=== PATIENT | female | born 1975 | race Caucasian/White ===

== ENCOUNTER 2019-10-20 11:08 | Outpatient (CLI) | payer OTHER, SELFPAY ==
--- NOTE | ~2019-10-20 | XR_ITS ---
EXAMINATION: XR lumbar spine 2-3V DATE: 10/20/2019 11:29 INDICATION: Back and left lower limb pain. TECHNIQUE: Anteroposterior and lateral views of the lumbar spine, and cone-down lateral view of the l umbosacral junction were obtained. COMPARISON: None. FINDINGS: Minimal lumbar levocurvature. Sagittal alignment is normal. Vertebral body heights are normal. Disc h eights are normal with anterior endplate osteophytes at multiple levels in the lower thoracic and upp er lumbar spine. Mild upper to moderate lower lumbar sac osteoarthritis. Decrement bilateral sacroili ac joints are normal. Bilateral hip joint spaces are normal. IMPRESSION: 1. Mild upper to moderate lower lumbar facet osteoarthritis. Reviewed, dictated and finalized at location A.
--- NOTE | ~2019-10-20 | US_ITS ---
EXAMINATION: US venous doppler [facility] DATE: 10/20/2019 11:53 INDICATION: Lower limb pain. TECHNIQUE: Grayscale ultrasound images without and with compression and Doppler ultrasound images of the bilateral lower extremity veins were obtained. COMPARISON: None. FINDINGS: The visualized portions of right common femoral vein, profunda (deep) femoral vein, femoral vein, pop liteal vein, peroneal veins, posterior tibial veins, and greater saphenous vein outflow are patent. The visualized portions of left common femoral vein, profunda femoral vein, femoral vein, popliteal v ein, peroneal veins, posterior tibial veins, and greater saphenous vein outflow are patent. IMPRESSION: 1. No deep venous thrombosis. Reviewed, dictated and finalized at location B.
== END 2019-10-20 11:09 | disposition home or self-care (01) ==
LOC: ANHIMG 11:13
PROVIDERS: PCP Family Medicine; Visit Provider Nurse Practitioner Family
DX: M79.669 Pain in unspecified lower leg (principal); M51.36 Other intervertebral disc degeneration, lumbar region
CPT/HCPCS: 72100; 93970

== ENCOUNTER 2020-03-05 10:06 | Outpatient (CLI) | payer OTHER, SELFPAY ==
--- NOTE | ~2020-03-05 | US_ITS ---
US abdomen complete EXAMINATION: US Abdomen Complete INDICATION: Generalized abdominal pain. PROCEDURE: Realtime High Resolution abdomen ultrasound. COMPARISON: No prior studies for comparison FINDINGS: Gallbladder within normal limits. No gallstones, pericholecystic fluid, gallbladder wall t hickening or biliary dilatation. Common bile duct measures 3 mm. Liver echotexture within normal limits without focal mass. Pancreas within normal limits. Pancreati c tail is obscured by bowel gas. Spleen is unremarkeable. Renal echotexture is within normal limits bilaterally without hydronephrosis, contour deforming mass or renal stone. Right kidney measures 9.8 cm. Left kidney measures 9.4 cm. No definite hernia is identified in the area of palpable concern. Va lsalva maneuver was performed. Visualized aspects of the aorta and IVC are within normal limits. Portal vein is patent. No sonograph ic Bhandari's sign indicated by the technologist. IMPRESSION: 1: Normal abdominal ultrasound. No abdominal hernias identified. Reviewed, dictated and finalized at location A. 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
== END 2020-03-05 10:07 ==
PROVIDERS: PCP Nurse Practitioner Family; Visit Provider Nurse Practitioner Family
DX: R10.9 Unspecified abdominal pain (principal)
CPT/HCPCS: 76700

== ENCOUNTER 2020-07-04 09:35 | Outpatient (CLI) | payer OTHER, SELFPAY ==
--- NOTE | ~2020-07-04 | XR_ITS ---
EXAMINATION: XR chest 2V DATE: 07/04/2020 10:08 INDICATION: Acute upper respiratory tract infection TECHNIQUE: PA and lateral views of the chest were obtained. COMPARISON: None FINDINGS: The lungs are clear with no focal airspace opacities, pulmonary edema, pleural effusion or pneumothor ax. The cardiomediastinal silhouette is normal. Moderate lower thoracic spondylosis with mild anterio r wedging of multiple lower thoracic vertebral bodies. IMPRESSION: 1. No acute cardiopulmonary disease. Reviewed, dictated and finalized at location A.
== END 2020-07-04 09:36 ==
LOC: MICIMG 09:37
PROVIDERS: Visit Provider Nurse Practitioner Family
DX: J06.9 Acute upper respiratory infection, unspecified (principal)
CPT/HCPCS: 71046

== ENCOUNTER 2020-11-16 14:31 | Outpatient (CLI) | payer OTHER, SELFPAY ==
--- NOTE | 2020-11-23 12:35 | P.PCNHOL_ITS ---
Holter/Event Monitor Holter/Event Monitor Date of procedure: 11/16/20 Holter/Event Procedure: 48 Hr Holter Monitor Indications: Palpitations Conclusion: 1. 48 hour holter monitor on 11/16/20. 2. Underlying rhythm is sinus rhythm. HR range 60-133 bpm; average HR 86 bpm. 3. There are 2 premature supraventricular complexes. No supraventricular tachycardia. 4. There are 236 premature ventricular complexes. No ventricular tachycardia. 5. No sinoatrial or atrioventricular blocks. No significant pauses greater than 2 seconds. 6. Patient reports symptoms of pounding heart beats, pinching feeling, left hand tingling, rapid beats, heavy chest which demonstrate sinus rhythm, HR range 76- 104 bpm and a PVC.
== END 2020-11-16 14:32 | disposition home or self-care (01) ==
LOC: ANHCARD 14:34
PROVIDERS: Visit Provider Nurse Practitioner Family
DX: R00.2 Palpitations (principal)
CPT/HCPCS: 93225; 93226

== ENCOUNTER → 2020-12-12 11:15 | Outpatient (CLI) | payer OTHER, SELFPAY ==
--- NOTE | ~2020-12-12 | MM_ITS ---
EXAMINATION: MM screening nicky BI w nishant HISTORY: Screening mammogram TECHNIQUE: Craniocaudal and mediolateral oblique 3-D tomosynthesis images were obtained and synthetic 2-D images were generated. CAD analysis was submitted and interpreted. COMPARISON: 07/23/2017, 07/07/2014 bilateral digital screening mammogram examinations BREAST PARENCHYMAL COMPOSITION: There are scattered areas of fibroglandular density. FINDINGS: There is no evidence of suspicious mass, calcification, or architectural distortion to sugg est malignancy in either breast. There has been no suspicious interval change. IMPRESSION: 1. No mammographic evidence of malignancy. 2. Recommend routine screening mammography in one year. BI-RADS Category 1: Negative Reviewed, dictated and finalized at location A.
== END ==
PROVIDERS: PCP Family Medicine; Visit Provider Nurse Practitioner Family
DX: Z12.31 Encounter for screening mammogram for malignant neoplasm of breast (principal)
CPT/HCPCS: 77063; 77067

== ENCOUNTER 2021-03-16 10:04 | Outpatient (CLI) | payer OTHER, SELFPAY ==
--- NOTE | ~2021-03-16 | XR_ITS ---
XR foot RT min 3V DATE: 03/16/2021 10:32 INDICATION: Right foot injury TECHNIQUE: 4 views COMPARISON: None FINDINGS: There is slight plantar calcaneal enthesopathy. No fracture, dislocation, periosteal reaction or bone destruction is detected. IMPRESSION: No fracture or dislocation Reviewed, dictated and finalized at location A. S BOBBIN WINDER IMPRESSION: No fracture or dislocation
== END 2021-03-16 10:05 ==
LOC: MICIMG 10:05
PROVIDERS: Visit Provider Nurse Practitioner Family
DX: S99.921A Unspecified injury of right foot, initial encounter (principal); X58.XXXA Exposure to other specified factors, initial encounter
CPT/HCPCS: 73630

== ENCOUNTER → 2021-03-20 02:00 | Outpatient (CLI) | payer OTHER, SELFPAY ==
[2021-03-20 19:02] LABS: SARS-CoV-2 RNA PCR Negative
== END ==
PROVIDERS: PCP Family Medicine; Visit Provider Nurse Practitioner Family
DX: R68.89 Other general symptoms and signs (principal); Z20.822 Contact with and (suspected) exposure to COVID-19
CPT/HCPCS: C9803; U0003; U0005

== ENCOUNTER 2021-05-04 06:52 | Outpatient (CLI) | payer OTHER, SELFPAY ==
--- NOTE | ~2021-05-04 | MR_ITS ---
EXAMINATION: MR ankle RT wo con DATE: 05/04/2021 07:45 INDICATION: Inversion injury of right ankle with sprain. TECHNIQUE: Magnetic resonance imaging (MRI) of the right ankle was performed without intravenous cont rast. Sequences included sagittal PD-weighted FS FSE, sagittal PD-weighted FSE, coronal PD-weighted F S FSE, coronal PD-weighted FSE, axial PD-weighted FS FSE, and axial PD-weighted FSE. COMPARISON: Right foot radiographs 03/06/2021 FINDINGS: Medial ankle ligaments: The superficial component of the deltoid ligament is normal. The deep component of deltoid ligament d emonstrates indistinct fibers and increased T2-weighted signal intensity, consistent with sprain. The re is edema-like marrow signal intensity in talus at the attachment of the deep component of deltoid ligament, consistent with stress reaction. Lateral ankle ligaments: Anterior talofibular ligament and calcaneofibular ligament are thickened and indistinct with increase d signal intensity and surrounding edema. A skin marker overlies this area. Posterior talofibular lig ament is intact. Anterior and posterior tibiofibular ligaments are intact. Tendons: There is mild peroneus longus tendinopathy. Peroneus brevis tendon is normal. There is mild common pe roneal tenosynovitis. The anterior and medial ankle tendons are normal. Achilles tendon is normal. Plantar fascia: Normal. Bones/other: Bone alignment is normal. The talar dome is normal. There is a nondisplaced trabecular fracture in di stal cuboid best seen on sagittal images. Fluid: There are ankle and subtalar joint effusions. IMPRESSION: 1. Grade 2 sprain involving anterior talofibular ligament and calcaneofibular ligament. 2. Grade 2 sprain involving deep component of deltoid ligament. Stress reaction in talus at the ligam ent attachment. 3. Nondisplaced trabecular fracture in distal cuboid. 4. Mild peroneus longus tendinopathy. Mild common peroneal tenosynovitis. 5. Ankle and subtalar joint effusions. Reviewed, dictated and finalized at location A. NG ASSISTANT IMPRESSION: 1. Grade 2 sprain involving anterior talofibular ligament and calcaneofibular l igament. 2. Grade 2 sprain involving deep component of deltoid ligament. Stress reaction in talus at the ligament attachment. 3. Nondisplaced trabecular fracture in distal cuboid. 4. Mild peroneus longus tendinopathy. Mild common peroneal tenosynovitis. 5. Ankle and subtalar joint effusions.
== END 2021-05-04 06:53 ==
LOC: MICIMG 06:53
PROVIDERS: PCP Physician Assistant Medical; Visit Provider Podiatrist Foot & Ankle Surgery
DX: S93.411A Sprain of calcaneofibular ligament of right ankle, initial encounter (principal); X58.XXXA Exposure to other specified factors, initial encounter; M25.471 Effusion, right ankle
CPT/HCPCS: 73721

== ENCOUNTER 2021-05-16 07:52 | Outpatient (CLI) | payer OTHER, SELFPAY ==
--- NOTE | 2021-05-16 08:04 | ECHO_ITS ---
Patient Info Name: Kylah Vieyra Age: 45 years : 1975 Gender: Female Ht: 69 in Wt: 265 lbs BSA: 2.47 m2 HR: 71 bpm BP: 132 / 88 mmHg Heart Rhythm: Sinus Rhythm Technical Quality: Good Exam Date: 05/16/2021 8:17 AM Exam Location: [facility] Patient Status: Outpatient Admit Date: 05/16/2021 Staff Ordering Physician: Tammy Dumont Manager Operating: Brittani Martin RDCS Attending Provider: Tammy Dumont Referring Physician: Julia URIBE; Exam Type: CA echo doppler color flow Study Info Indications R01.1 - Cardiac murmur, unspecified Complete two-dimensional, color flow and Doppler transthoracic echocardiogram is performed. Strain analysis performed. Summary 1. Complete two-dimensional, color flow and Doppler transthoracic echocardiogram is performed. 2. Strain analysis performed. 3. Left ventricular chamber dimension is normal. 4. Left ventricular systolic function is normal, estimated at 55-60%. 5. There is no increased left ventricular wall thickness. 6. The left ventricular diastolic function is normal. 7. Global longitudinal strain is normal at -18 %. 8. Left atrial chamber dimension is mildly enlarged. 9. The aortic valve is probable trileaflet. 10. There is mild aortic valve regurgitation. 11. There is mild mitral valve regurgitation. 12. There is mild tricuspid valve regurgitation. 13. Frequent PVCs. Left Ventricle Left ventricular chamber dimension is normal. Left ventricular systolic function is normal, estimated at 55-60%. There is no increased left ventricular wall thickness. The left ventricular diastolic function is normal. Global longitudinal strain is normal at -18 %. Right Ventricle Right ventricular chamber dimension is normal. Right ventricular systolic function is normal. Left Atria Left atrial chamber dimension is mildly enlarged. Right Atria Right atrial chamber dimension is normal. Atrial Septum Intact interatrial septum visualized by color flow imaging. Aortic Valve The aortic valve is probable trileaflet. There is mild aortic valve sclerosis. There is no aortic valve stenosis. There is mild aortic valve regurgitation. Pulmonic Valve The pulmonic valve is normal. There is no pulmonic valve stenosis. There is trace pulmonic regurgitation. Mitral Valve The mitral valve has normal leaflets. There is no mitral valve stenosis. There is mild mitral valve regurgitation. Tricuspid Valve The tricuspid valve leaflets are normal. There is no significant tricuspid valve stenosis. There is mild tricuspid valve regurgitation. No pulmonary hypertension, estimated pulmonary arterial systolic pressure is 31 mmHg. Other Findings Frequent PVCs. Pericardium/Pleural The pericardium appears normal. There is trivial pericardial effusion. Inferior Vena Cava Normal inferior vena cava with <50% collapse upon inspiration consistent with elevated right atrial pressure, 10 mmHg. Aorta The aortic root size at the sinus of Valsalva is normal. The prox ascending aorta size is normal. Left Ventricular Outflow Tract Name Value Normal LVOT 2D LVOT Diameter 2.0 cm LVOT Doppler --------
== END 2021-05-16 07:53 | disposition home or self-care (01) ==
LOC: ANHCARD 07:54
PROVIDERS: PCP Physician Assistant Medical; Visit Provider Physician Assistant Medical
DX: R01.1 Cardiac murmur, unspecified (principal); R42 Dizziness and giddiness; I08.3 Combined rheumatic disorders of mitral, aortic and tricuspid valves
CPT/HCPCS: 93306

== ENCOUNTER 2022-04-04 16:30 | Outpatient (CLI) | payer BC, SELFPAY ==
--- NOTE | ~2022-04-04 | XR_ITS ---
AP view of the pelvis and AP and lateral views of the left hip Clinical history: Pain Findings: No acute fracture or dislocation is seen. Osseous alignment is anatomic. Bilateral hip and SI joint spaces are preserved. Soft tissues are unremarkable. Impression: No significant abnormality is seen. Reviewed, dictated and finalized at [facility]. TECHNICIAN Impression: No significant abnormality is seen.
== END 2022-04-04 16:31 ==
LOC: MICIMG 16:32
PROVIDERS: PCP Family Medicine; Visit Provider Nurse Practitioner Family
DX: M25.552 Pain in left hip (principal)
CPT/HCPCS: 73502

== ENCOUNTER 2022-08-03 12:45 | Outpatient (CLI) | payer BC, SELFPAY ==
--- NOTE | ~2022-08-03 | US_ITS ---
US abdomen complete DATE: 08/03/2022 13:04 INDICATION: Right upper quadrant abdominal pain and vomiting TECHNIQUE: Real-time imaging and Doppler analysis of the abdomen COMPARISON: 03/05/2020 abdominal ultrasound complete examination FINDINGS: The abdominal aorta is of normal caliber. The inferior vena cava is unremarkable. No hepatic or pancreatic space-occupying mass lesion is detected. Normal hepatopedal portal venous fl ow direction. There are multiple filling defects of the gallbladder with shadowing, consistent with cholelithiasis. No gallbladder wall thickening or pericholecystic fluid or fat stranding is noted. Negative sonograp hic Bhandari's sign. The common bile duct measures 3.6 mm, normal. The right kidney measures approximately 10.6 cm length, left kidney approximately 10 cm length. No re nal mass lesion or hydronephrosis. Normal splenic size. IMPRESSION: Cholelithiasis Reviewed, dictated and finalized at Location A. Reviewed, dictated and finalized at location [] IMPRESSION: Cholelithiasis
== END 2022-08-03 12:46 ==
LOC: MICIMG 12:45
PROVIDERS: PCP Family Medicine; Visit Provider Physician Assistant Medical
DX: R10.11 Right upper quadrant pain (principal); K80.20 Calculus of gallbladder without cholecystitis without obstruction
CPT/HCPCS: 76700

== ENCOUNTER → 2022-09-21 12:15 | Outpatient (CLI) | payer BC, SELFPAY ==
--- NOTE | ~2022-09-21 | MM_ITS ---
EXAMINATION: MM screening [facility] BI w nishant HISTORY: Screening mammogram TECHNIQUE: Craniocaudal and mediolateral oblique 3-D tomosynthesis images were obtained and synthetic 2-D images were generated. CAD analysis was submitted and interpreted. COMPARISON: 12/12/2020, 07/23/2017, 07/07/2014 BREAST PARENCHYMAL COMPOSITION: There are scattered areas of fibroglandular density. FINDINGS: No suspicious mass, calcification, or architectural distortion are identified in either connie ast to suggest malignancy. There has been no suspicious interval change. IMPRESSION: 1. No mammographic evidence of malignancy. 2. Recommend routine screening mammography in one year. BI-RADS Category 1: Negative Reviewed, dictated and finalized at location A.
== END ==
PROVIDERS: PCP Nurse Practitioner Family; Visit Provider Nurse Practitioner Family
DX: Z12.31 Encounter for screening mammogram for malignant neoplasm of breast (principal)
CPT/HCPCS: 77063; 77067

== ENCOUNTER 2022-09-22 11:59 | Outpatient (CLI) | payer BC, SELFPAY ==
--- NOTE | 2022-09-22 12:13 | ECG_ITS ---
Measurements Intervals [place] Rate: 77 P: 61 NH: 164 QRS: 53 QRSD: 96 T: 44 QT: 381 QTc: 432 Interpretive Statements SINUS RHYTHM POSSIBLE LEFT ATRIAL ENLARGEMENT NONSPECIFIC T-WAVE ABNORMALITY- INFERIOR LEADS BORDERLINE ECG NO PREVIOUS ECG AVAILABLE FOR COMPARISON Electronically Signed On 09-22-2022 17:23:41 CDT by Eduardo Hawkins D.O.
[2022-09-22 12:27] LABS: Anion Gap 10 mmol/L (8-16); Blood Urea Nitrogen 17 mg/dL (7-17); Calcium 9.1 mg/dL (8.4-10.2); Carbon Dioxide 25 mmol/L (22-30); Chloride 102 mmol/L (98-107); Estimated Glomerular Filt Rate > 60; Glucose 89 mg/dL (65-110); Potassium 4.1 mmol/L (3.4-5.0); Sodium 137 mmol/L (137-145)
[2022-09-22 12:30] LABS: Amylase 52 U/L (30-110); Lipase 56 U/L (23-300)
== END 2022-09-22 12:00 | disposition home or self-care (01) ==
LOC: ANHLAB 12:02
PROVIDERS: Anesthesiology; PCP Nurse Practitioner Family; Visit Provider Surgery
DX: K80.20 Calculus of gallbladder without cholecystitis without obstruction (principal); I10 Essential (primary) hypertension; Z79.899 Other long term (current) drug therapy
CPT/HCPCS: 36415; 80048; 82150; 83690; 86850; 86900; 86901; 93005

== ENCOUNTER 2022-09-28 03:44 | Day surgery (SDC) | payer BC, SELFPAY ==
[2022-09-20 09:24] VITALS: BMI 43.5
--- NOTE | 2022-09-20 09:30 | PC.NURSE ---
Report to the Outpatient Waiting Room, entrance under the green pavilion located off [facility], at time _0630 on date _09/28/22_. Planned Procedure Time: _829_. Time changes happen often and if your time is changed the preop area will call you the afternoon before. - You and your visitor will be asked to self-screen and do not enter if you have any COVID symptoms. - A mask is optional within the hospital at this time. Patients may have clear liquids (water, carbonated beverages, clear teas, apple juice) until 3 hours prior to surgery with a maximum of 20 ounces. - No food from midnight until time of surgery - Infants may have breast milk until 4 hours before surgery, formula 6 hours prior to surgery. - Children will be allowed to drink immediately following surgery. If applicable, please bring a bottle or sippy cup to assist with drinking. Juice, water, soda, and popsicles are readily available. For infants on formula, please bring formula the day of surgery. Pacifiers are allowed. Take the following medications with a SIP of water the morning of surgery: ESCITALIPRAM DO NOT STOP ANY OF YOUR OTHER PRESCRIPTION MEDICATIONS PRIOR TO SURGERY ?EXCEPT THE FOLLOWING Medications to discontinue per physician VITAMIN D Date to take last dose 09/23/22 Please no make-up, nail marshallese, hairspray, perfume, deodorant, or body powder the day of surgery. No jewelry (including any body piercings) or valuables the day of surgery, leave them at home. Please take a shower or bath the night before, or the morning of, surgery with HIBICLENS antibacterial soap. Wear comfortable, loose fitting clothing. Children are encouraged to wear pajamas. - Jewelry must be removed prior to entering the operating room. Rings and piercings that are not removed may be cut off. - The hospital will not accept responsibility for valuables. - Please leave all valuables, including medications, at home the day of surgery. If you are going home after surgery, a licensed funeral car driver must drive you home. - NO public transportation without another adult if you receive anesthesia. - We recommend that an adult stay with you for 24 hours following discharge. - We also recommend that you do not drive, make important decision, drink alcoholic beverages, or take any drugs that were not prescribed by your health care provider for at least 24 hours after your discharge time. For Pediatric surgeries, we recommend two adults accompany the child home. Follow any additional instructions given to you from your surgeon. If you or anyone in your household have experienced Covid symptoms in the past week, please notify your surgeon or the nurse liaison at the phone number below for possible testing. Telephone instructions given to _PATIENT_and asked if any additional questions and then verbalized understanding. Patient advised to call surgeon office or pre surgery nurse liaison [phone] if any additional questions.
[2022-09-28] VITALS (8 sets, daily range): BP systolic 112–132; BP diastolic 67–87; PULSE 60–88; RESP 13–20; TEMP 36.4–36.8; O2SAT 96–100; BMI 42.4
--- NOTE | 2022-09-28 07:40 | WPDANESEPPF ---
Anes - Initial Pre Proc Eval Procedure: Operation Date: 09/28/22 08:30 Proposed Procedures p Laparoscopic Cholecystectomy, Possible Open - Jean Pierre Hopper MD Date/Time: 09/28/22 07:40 Surgeon: Jean Pierre Hopper MD Pre Op Diagnosis: symptomatic cholelithiasis Patient Data Age: 47 Gender: F Height: 1.73 m Weight: 130 kg Allergies Allergy/AdvReac Type Severity Reaction Status Date / Time meloxicam AdvReac Intermediate Hypertensio Verified 09/28/22 07:37 n Sulfa (Sulfonamide AdvReac Intermediate Rash Verified 09/28/22 07:37 Antibiotics) Home Medications Medication Instructions Recorded Confirmed Type lisinopril 20 See Rx Instructions .Route 05/10/22 09/28/22 Rx mg-hydrochlorothiazide 25 mg tablet .COMPLEX #90 tabs cholecalciferol (vitamin D3) 1,250 1,250 mcg PO WEEKLY #8 caps 06/27/22 09/28/22 Rx mcg (50,000 unit) capsule omeprazole 40 mg capsule,delayed 40 mg PO DAILY #90 caps 08/13/22 09/28/22 Rx release clonazepam 0.5 mg tablet 0.5 mg PO DAILY PRN Anxiety 09/20/22 09/28/22 History escitalopram oxalate 5 mg tablet 5 mg PO DAILY #30 tabs 09/24/22 09/28/22 Rx Patient hx anesthesia problems: none Family hx anesthesia problems: none Results Review: All pre-operative results and documents have been reviewed as part of the pre-operative evaluation. [facility] Past Medical History Medical History Anxiety Benign hypertension BMI 39.0-39.9,adult Body mass index (BMI) of 40.1 to 44.9 in adult Broken ankle Screening mammogram, encounter for Tobacco abuse Surgical History Surgical History History of gynecological procedure (07/06/11) colposcopy / 02/08/2010 History of gynecological procedure (03/09/04) DX LAP, LEFT SALPINECTOMY - LEFT HYDROSALPINGX History of gynecological procedure (01/05/04) LAP, CHROMOPERTUBATION, HSCOPE Family History Family History Father Diabetes mellitus Heart disease History of brain shunt Hydrocalycosis Status post double vessel coronary artery bypass Mother Atrial fibrillation Cardiac defibrillator in place Other Family history of malignant neoplasm of brain Family history of malignant neoplasm of kidney Family history of type 2 diabetes mellitus Hypertension Social History Social History Smoking packs per day: 0.05 Smoking cigarettes per day: 1.0 Years smoked: 15 Smoking pack-years: 0.75 Smoking status: Former smoker Tobacco type: cigarettes Second hand tobacco smoke exposure: Yes Alcohol intake: current Drinks per week: 2 Substance use: never Substance use type: does not use Lack of Transportation: No Lack of Food: Never True Current Housing: I Have Housing Concerned About Future Housing: No Difficulty Paying Gas/Electric Bills: No Difficulty Paying for Meds: No Currently Unemployed: No Education: Bachelor's Degree Difficulty w/ Childcare or Family Care: No Living arrangements: with family Additional living arrangements comments: Occupation/Education: occupation 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 Gender identity (if verbalized by the patient): Female Sexual Orientation (if Verbalized by the Patient): Straight or Heterosexual Anes - Eval Final PreProcedure Day of Procedure 09/28/22 07:40 Patient weight: morbidly obese Heart: regular rate and rhythm Lungs: clear to auscultation Airway: Mallampati scale class II Neurological: alert and oriented Last oral intake: >/= 8 hours ASA classification: III Emergent: no Anesthetic plan: proceed Anesthesia type and monitoring: general ETT and standard monitoring Results Review: All pre-operative results and documents have been reviewed as part of the pre-operative evaluation. Inf
--- NOTE | 2022-09-28 08:20 | PM.IMHP ---
H&P: HPI History of Present Illness Date/Time: 09/28/22 08:20 Chief Complaint: RUQ pain, gallstones Narrative: Ms Vieyra is a 47 year old female that presents to the office at the request of Tammy Dumont PA-C for an evaluation of epigastric pain. Patient reports that she has been having upper epigastric pain and upper right quadrant pain that radiates to her back that is worse after eating for about a month. She reports having associated nausea, vomiting and diarrhea intermittent. Patient reports that she has trouble with anything she eats except goldfish, Samantha Calvin bread, and oatmeal. Patient has had three organizational effectiveness consultant surgeries which includes a left salpingectomy. Patient had a RUQ US on 08/03/22 at [facility] that showed cholelithiasis. PFSH Medical History? Anxiety Benign hypertension BMI 39.0-39.9,adult Body mass index (BMI) of 40.1 to 44.9 in adult Broken ankle Screening mammogram, encounter for Tobacco abuse Surgical History? History of gynecological procedure (07/06/11) colposcopy / 02/08/2010History of gynecological procedure (03/09/04) DX LAP, LEFT SALPINECTOMY - LEFT HYDROSALPINGXHistory of gynecological procedure (01/05/04) LAP, CHROMOPERTUBATION, HSCOPE Family History? Father Diabetes mellitus Heart disease History of brain shunt Hydrocalycosis Status post double vessel coronary artery bypassMother Atrial fibrillation Cardiac defibrillator in placeOther Family history of malignant neoplasm of brain Family history of malignant neoplasm of kidney Family history of type 2 diabetes mellitus Hypertension Social History? Smoking packs per day:? 0.5 Smoking cigarettes per day:? 10.0 Years smoked:? 20 Smoking pack-years:? 10.00 Smoking status:? Former smoker Tobacco type:? cigarettes Second hand tobacco smoke exposure:? Yes Alcohol intake:? current Drinks per week:? 2 Substance use:? never Substance use type:? does not use Lack of Transportation:? No Lack of Food:? Never True Current Housing:? I Have Housing Concerned About Future Housing:? No Difficulty Paying Gas/Electric Bills:? No Difficulty Paying for Meds:? No Currently Unemployed:? No Education:? Bachelor's Degree Difficulty w/ Childcare or Family Care:? No Living arrangements:? with family Additional living arrangements comments:? Occupation/Education:? 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 Female Sexual Orientation (if Verbalized by the Patient):? Straight or Heterosexual Female Reproductive History Menstrual Age of Menarche: 12 control method: none Total pregnancies: 2 Full term: 2 Intake Vital Signs ? 08/23/2312:20 Height 1.73 m Height (Inches) 68 Weight 132.449 kg Weight (Lbs) 292 lbs., 0 oz. BMI 44.4 BP 128/72 Blood Pressure Location Lt brachial Position Sitting Respiration 18 Pulse 72 Pulse Source Monitor Temp 36.7 C Temp Source Tympanic Pulse Oximetry (%) 98 Oxygen Delivery Method Room Air Visit Reasons:?Gallbladder problems Allergies/Adverse Reactions meloxicam Adverse Reaction (Intermediate, Verified 08/23/22 13:03) HypertensionSulfa (Sulfonamide Antibiotics) Adverse Reaction (Intermediate, Verified 08/23/22 13:03) Rash Preferred laboratory: [facility] Pre-Planning preparation?: Yes Review of Systems Const All systems reviewed & are unremarkable except as noted in HPI and below Reports chills, Reports fatigue, Reports fever(s), Reports headache(s) and Reports weight gain Eyes Denies blurry vision, Denies itchy eyes, Denies photophobia and Denies spots in vision ENT Reports dysphagia, Reports dizziness, Reports headache(s) and Denies lip swelling Card Reports palpitations and Denies dyspnea Res
--- NOTE | 2022-09-28 08:23 | WPDHPUPDATE1 ---
History and Physical Update Update Date/Time: 09/28/22 08:23 History and Physical has been reviewed, including an updated exam of the patient. There are NO changes in the patient's condition. Risks, benefits, and alternatives have been discussed and questions answered. Patient agrees to proceed with procedure.
[2022-09-28] MEDS: LACTATED RINGERS 1,000 ML 30 ML IV CONT ×2 (08:30→09:45)
[2022-09-28] MEDS: ceFAZolin 3 GM/D5W 100 ML 100 ML IVPB (08:37)
[2022-09-28] MEDS: LIDO 1%/EPINEPHRINE 1:100,000 50 ML VIAL INFILTRATE (09:24)
[2022-09-28] MEDS: BUPivacaine HCL 0.5% PF 30 ML VIAL INFILTRATE (09:25)
--- NOTE | 2022-09-28 09:40 | W.PM.PROC2 ---
Procedure Note - Detailed Date of Procedure 09/28/22 Pre-op Diagnosis Symptomatic cholelithiasis Post-op Diagnosis Same Procedure Performed Laparoscopic cholecystectomy Surgeon Jean Pierre Hopper MD Anesthesia General Indications Patient is a 47-year-old female who presented with complaints of right upper quadrant abdominal pain frequently with eating. Abdominal exam showed some mild tenderness right upper quadrant the area the gallbladder and imaging with an abdominal ultrasound showed multiple gallstones. She presents now for elective laparoscopic cholecystectomy. Findings Minimally thickened gallbladder wall. Multiple gallstones within the gallbladder. No acute inflammatory changes. Description of Procedure After informed consent was obtained patient brought to the operating room where she was placed supine position and general endotracheal anesthesia was administered. The abdomen was then prepped and draped in usual sterile fashion. A time-out was then performed correctly identifying the patient as well as procedure to be performed. She was given perioperative IV antibiotics. Then entered the abdomen left upper quadrant lies in a 5mm Optiview port. Once inside the abdomen insufflated to an adequate pneumoperitoneum of 15mmHg of CO2. Looking in the area the umbilicus there is no adhesions there so placed a 5mm trocar port the periumbilical position. Looking up in the area the gallbladder there were no adhesions of bowel or omentum to the gallbladder. I then placed an epigastric 10mm trocar port and 2 right lateral subcostal 5mm trocar ports all under direct visualization. I then held the gallbladder with a laparoscopic grasper at the dome and elevated the gallbladder over the right hip number toward the right shoulder. Second grasper was then used to hold the gallbladder at the infundibulum. I then proceeded to strip down the visceral peritoneum of the infundibulum gallbladder identified the cystic duct. The cystic duct was then dissected out circumferentially. Cystic artery was dissected out circumferentially as well. Posterior wall the gallbladder infundibulum dissected free of the liver into the critical view was obtained. I then proceeded to strip the cystic duct to make sure there was no stones within it and there were no stones. I then placed 2 clips proximal to cystic duct and 2 clips distally high on infundibulum of the gallbladder. The cystic duct was then divided with Endo Kj. In a similar fashion cystic artery clipped and divided as well. I then proceeded to dissect the gallbladder off the liver bed without any difficulty. There was no spillage of any bile or gallstones. Once the gallbladder was freed was placed into an Endo-Catch bag and brought out through the epigastric port site. Is passed off table sent to pathology for examination. Multiple gallstones were palpated within the gallbladder. I then irrigated out the right upper quadrant the abdomen the gallbladder fossa copious amounts of sterile saline solution. Hemostasis was excellent. I then aspirated the fluid from the right upper quad the abdomen from the pelvis. I then see a couple of deposits in the right lower quadrant right side the pelvic wall which look suspicious for small deposits of endometriosis. I took photographs of these areas. These pictures were left in the chart. I then removed all the trocar ports under visualization all port sites appeared hemostatic. I then allowed the abdomen decompressed. I then irrigated all the port sites sterile saline solution hemostasis was good. I then closed the epigastric 10mm trocar port fascial defect utilizing a 0 Vicryl suture placed in a figure-eight fashion. The skin edges in all the port sites were then approximated utilizing a running subcuticular 4-0 Monocryl suture the incisions were then cleaned the skin glue sterile dressings were applied. The patient tolerated the procedure well no complications. All sponges
[2022-09-28] MEDS: fentaNYL CITRATE INJ (*CRX) 100 MCG/2 ML VIAL 25 MCG IV PUSH ×2 (10:15→10:20)
[2022-09-28] MEDS: SCOPOLAMINE 1.5 MG PATCH TRANSDERM (10:17)
[2022-09-28] MEDS: oxyCODONE (*CRX) 5 MG/5 ML ORAL SOLN IR PO (11:01)
== END 2022-09-28 12:01 | disposition home or self-care (01) ==
PROVIDERS: PCP Nurse Practitioner Family; Visit Provider Surgery
PROC: 0FT44ZZ Resection of Gallbladder, Percutaneous Endoscopic Approach (ICD-10-PCS; CPT 47562; principal; 2022-09-28 08:30)
DX: K80.10 Calculus of gallbladder with chronic cholecystitis without obstruction (principal); I10 Essential (primary) hypertension; F41.9 Anxiety disorder, unspecified; Z87.891 Personal history of nicotine dependence; E66.01 Morbid (severe) obesity due to excess calories; Z68.41 Body mass index [BMI] 40.0-44.9, adult
CPT/HCPCS: 47562; 88304; A9270; C1713; J0690; J1100; J1200; J2250; J2405; J2704; J3010; J7030; J7120

== ENCOUNTER 2023-07-30 11:06 | Outpatient (CLI) | payer BC, SELFPAY ==
--- NOTE | ~2023-07-30 | US_ITS ---
EXAMINATION: US abdomen complete DATE: 07/30/2023 11:56 INDICATION: R79.89 - Other specified abnormal findings of blood chemi... TECHNIQUE: Multiple grayscale and Doppler ultrasound images of the abdomen were obtained. COMPARISON: 08/03/2022. FINDINGS: The visualized portions of the pancreas are normal. The liver is normal with normal echogen icity and echotexture. No surface nodularity. Normal hepatopetal flow in the main portal vein. Status post cholecystectomy. The common bile duct measures 4 mm. There was no sonographic Bhandari sign. The visualized portions of the aorta and inferior vena cava are normal. The right kidney measures 8.8 x 4.9 x 5.2 cm. The left kidney measures 9.2 x 5.2 x 4.0 cm. The kidney s demonstrate normal parenchymal echogenicity. There is no hydronephrosis. The spleen is normal in ap pearance and measures 12.3 cm. IMPRESSION: Status post cholecystectomy, otherwise normal abdominal ultrasound findings. Reviewed, dictated and finalized at location K.
== END 2023-07-30 11:07 ==
LOC: MICIMG 11:07
PROVIDERS: PCP Physician Assistant Medical; Visit Provider Physician Assistant Medical
DX: R79.89 Other specified abnormal findings of blood chemistry (principal); Z90.49 Acquired absence of other specified parts of digestive tract
CPT/HCPCS: 76700

== ENCOUNTER 2023-09-30 08:18 | Outpatient (CLI) | payer BC, SELFPAY ==
--- NOTE | ~2023-09-30 | US_ITS ---
Please refer to diagnostic mammogram report dated 09/30/2023 for details. Reviewed, dictated and finalized at location B.
--- NOTE | ~2023-09-30 | MM_ITS ---
EXAMINATION: MM diagnostic nicky BI w nishant HISTORY: Palpable left breast lump TECHNIQUE: Additional 3-D tomosynthesis images of the breasts were performed and synthetic 2-D images were generated. CAD analysis was submitted and interpreted. High resolution breast ultrasound was pe rformed. COMPARISON: Comparison to multiple prior studies sequentially, with oldest reviewed study dated 07/07. BREAST PARENCHYMAL COMPOSITION: Not dense: There are scattered areas of fibroglandular density. FINDINGS: MAMMOGRAPHIC FINDINGS: There are no suspicious masses, calcifications or architectural distortion in either breast to sugges t malignancy. ULTRASOUND: Limited left breast ultrasound: There are no suspicious masses, calcifications or architectural disto rtion in the left breast in the area of palpable concern. IMPRESSION: 1. No evidence for malignancy in either breast. 2. Routine yearly screening mammogram and regular clinical breast examination are recommended. BI-RADS Category 1: Negative Reviewed, dictated and finalized at location B. IMPRESSION: 1. No evidence for malignancy in either breast. 2. Routine yearly screening mammogram and regular clinical breast examination a re recommended. BI-RADS Category 1: Negative
== END 2023-09-30 08:19 ==
PROVIDERS: PCP Nurse Practitioner Adult Health; Visit Provider Nurse Practitioner Adult Health
DX: N63.20 Unspecified lump in the left breast, unspecified quadrant (principal)
CPT/HCPCS: 76642; 77062; 77066; G0279

== ENCOUNTER 2024-02-11 15:40 | Outpatient (CLI) | payer BC, SELFPAY ==
--- NOTE | ~2024-02-11 | CT_ITS ---
EXAMINATION: CT abdomen pelvis wo con DATE: 02/11/2024 16:00 INDICATION: Left upper quadrant abdominal pain. Diarrhea. Vomiting. TECHNIQUE: Computed tomography (CT) of the abdomen and pelvis was performed without intravenous contr ast. Automated exposure control and iterative reconstruction technique were employed. The dose-length product was 959.61 mGy-cm. COMPARISON: None. FINDINGS: The visualized portions of the lung bases demonstrate mild scarring in paraspinal right low er lobe. There is a 3 mm nodule in right lower lobe, likely benign. No pleural effusion. The heart si ze is normal. No pericardial effusion. The liver is normal. There are changes of cholecystectomy. The spleen, pancreas, adrenal glands, and kidneys are normal. There is no urolithiasis. There are no dil ated loops of bowel. The appendix is normal. There are no pathologically enlarged lymph nodes. There is no free intraperitoneal fluid. There is mild chronic anterior wedging of multiple thoracic vertebr al bodies. There is moderate thoracic spondylosis and mild lumbar spondylosis. IMPRESSION: 1. No etiology for the patient's symptoms. Reviewed, dictated and finalized at location A. ORT SERVICE TECH
== END 2024-02-11 15:41 | disposition home or self-care (01) ==
LOC: MICIMG 15:40
PROVIDERS: PCP Family Medicine; Visit Provider Nurse Practitioner Family
DX: R10.12 Left upper quadrant pain (principal)
CPT/HCPCS: 74176

== ENCOUNTER 2024-05-12 00:51 | Day surgery (SDC) | payer BC, SELFPAY ==
[2024-05-01 09:50] VITALS: BMI 37.6
--- OUTSIDE RECORDS SUMMARY | 2024-05-12 00:54 | XMS_ITS | Referral Summary ---
Author Organization [facility] [address] Address [address] [place] [address] Care Team Providers Care Concrete Bucket Loader Name Role Phone Hu Moreland MD Primary Care Provider [phone] Allergies Active Allergy Reactions Criticality Noted Date Comments Iodinated Contrast Media Unknown 08/24/2021 Sulfa (Sulfonamide Antibiotics) Hives,Shortness of breath High 08/24/2021 Medications clonazePAM (KlonoPIN) 0.5 mg tablet Take 0.5 mg by mouth daily 2 Active lisinopril-hydroCHL OROthiazide (ZESTORETIC) 20-25 mg per tablet Take 1 tablet by mouth daily 2 Active celecoxib (CeleBREX) 100 mg capsule Take 100 mg by mouth 2 (two) times a day 2 Active metoprolol tartrate (LOPRESSOR) 25 mg immediate release tabletIndications:V entricular premature depolarization Take 0.5 tablets (12.5 mg total) by mouth 2 (two) times a day 30 tablet 11 2 Active Active Problems Problem Noted Date Diagnosed Date Syncope and collapse 08/24/2021 Ventricular premature depolarization 08/24/2021 Cardiac murmur, unspecified 08/24/2021 Dizziness and giddiness 08/24/2021 Morbid obesity with BMI of 40.0-44.9, adult 07/28 Hypersomnolence 08/24/2021 Social History Tobacco Use Types Packs/Day Years Used Date Smoking Tobacco: Former Cigarettes 0.5 5 0 10/19/2015 - 10/18/2020 Smokeless Tobacco: Never Personal Safety Answer Date Recorded Getting School Help Needed Not on file 05/11 Comments Unknown Sex and Gender Information Value Date Recorded Sex Assigned at Not on file Legal Sex Female 10:58 AM 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 Gender Identity Not on file Sexual Orientation Not on file Last Filed Vital Signs Vital Sign Reading Time Taken Comments Blood Pressure 114/70 09/12/2021 9:01 AM CDT Pulse 70 09/12/2021 9:01 AM CDT Temperature - - Respiratory Rate - - Oxygen Saturation 98% 09/12/2021 9:01 AM CDT Inhaled Oxygen Concentration - - Weight 124.7 kg (275 lb) 09/12/2021 9:01 AM CDT Height 175.3 cm (5' 9 ) 09/12/2021 9:01 AM CDT Body Mass Index 40.61 09/12/2021 9:01 AM CDT Plan of Treatment Not on file Insurance [employer] OPEN ACCESS [employer] OPEN ACCESS [employer] OPEN ACCESS Care Teams Concrete Bucket Loader Relationship Specialty Start Date End Date Hu Moreland MD PCP - General Family Medicine 05/10/21
--- OUTSIDE RECORDS SUMMARY | 2024-05-12 00:54 | XMS_ITS | Clinical Summary ---
Author Organization [facility] [place] [address] Address [address] [place] [address] Care Team Providers Care Glass Blowing Instructor Name Role Phone Hu Moreland MD Primary Care Provider [phone] Allergies Active Allergy Reactions Criticality Noted Date [...] BMI of 40.0-44.9, adult 07/28 Hypersomnolence 08/24/2021 Medical History Medical History Date Comments Hypertension Heart murmur Syncope Family History Medical History Relation Name Comments Hydrocephalus Father Arrhythmia Mother Atrial fibrillation Mother Heart failure Mother Relation Name Status Comments Father Alive Mother Alive Social History Tobacco Use Types Packs/Day Years Used Date Smoking Tobacco: Former Cigarettes 0.5 5 0 10/19/2015 - 10/18/2020 Smokeless Tobacco: Never Personal Safety Answer Date Recorded Getting School Help Needed Not on file 05/11 Comments Unknown Sex and Gender Information Value Date Recorded Sex Assigned at Not on file Legal Sex Female 10:58 AM EMBLEM DRAWER IN Gender Identity Not on file Sexual Orientation Not on file Obstetrics History Last Filed Vital Signs Vital Sign Reading [...] 09/12/2021 9:01 AM CDT Plan of Treatment Health Maintenance Due Date Last Done Comments Breast Cancer Screening-Mammogram 1973 Cervical Cancer Screening 1973 Colon Cancer Screening-Colonoscopy 1973 Depression Screening 1973 Hepatitis C Screening 1973 DTaP/Tdap/Td Vaccine (1 - Tdap) 1984 Hepatitis B Screening 08/02/1991 Regular Well Visit/Exam 18-64 08/02/1991 Zoster Vaccine (1 of 2) 08/02/2023 Covid-19 Vaccine (2 - 2023-2 5 season) 2023 06/01/2020 Influenza Vaccine (#1) 2023 Pneumococcal vaccine <65 Aged Out No longer eligible based on patient's age to complete this topic Insurance C[employer] OPEN ACCESS CIGNA OPEN ACCESS CIGNA OPEN ACCESS Care Teams Glass Blowing Instructor Relationship Specialty Start Date End Date Hu Moreland MD PCP - General Family Medicine 05/10/21
[2024-05-12 12:35] VITALS: BP 137/85; PULSE 81; RESP 20; TEMP 36.2; O2SAT 99
[2024-05-12] MEDS: LACTATED RINGERS 1,000 ML 150 ML IV CONT (12:41)
--- NOTE | 2024-05-12 12:47 | P.PNAN_ITS ---
Anes - Initial Pre Proc Eval Procedure: Operation Date: 05/12/24 14:00 Proposed Procedures p Esophagogastroduodenoscopy - Bora Gann MD Date/Time: 05/12/24 12:47 Surgeon: Bora Gann MD Pre Op Diagnosis: Epigastric pain,dysphagia Patient Data Age: 48 Gender: F Height: 1.75 m Weight: 116.3 kg Last Vital Signs Temp 36.2 C L 05/12/24 12:35 Pulse 81 05/12/24 12:35 Resp 20 05/12/24 12:35 BP 137/85 05/12/24 12:35 Pulse Ox 99 05/12/24 12:35 O2 Del Method Room Air 05/12/24 12:35 Allergies Allergy/AdvReac Type Severity Reaction Status Date / Time meloxicam AdvReac Intermediate Hypertensio Verified 05/12/24 12:33 n Sulfa (Sulfonamide AdvReac Intermediate Rash Verified 05/12/24 12:33 Antibiotics) Home Medications ?Medication ?Instructions ?Recorded ?Confirmed ?Type tirzepatide (weight loss) 5 mg/0.5 5 mg (0.5 mL) subcut WEEKLY #2 mL 10/23/23 05/12/24 Rx mL subcutaneous pen injector (Zepbound) ondansetron 4 mg disintegrating 4 mg PO Q6H PRN nausea and 01/20/24 05/01/24 Rx tablet vomiting #10 tabs lisinopril 20 See Rx Instructions .Route 03/12/24 05/12/24 Rx mg-hydrochlorothiazide 25 mg tablet .COMPLEX #90 tabs clonazepam 0.5 mg tablet 0.5 mg PO DAILY PRN Anxiety #30 05/08/24 05/12/24 Rx tabs Patient hx anesthesia problems: post op nausea/vomiting Family hx anesthesia problems: none Results Review: All pre-operative results and documents have been reviewed as part of the pre- operative evaluation. [facility] Past Medical History Medical History Obesity (BMI 30-39.9) Left breast mass Screening mammogram, encounter for Broken ankle BMI 39.0-39.9,adult Tobacco abuse Anxiety Benign hypertension Surgical History Surgical History Hx laparoscopic cholecystectomy 09/28/22 History of gynecological procedure (01/05/04) LAP, CHROMOPERTUBATION, HSCOPE History of gynecological procedure (03/09/04) DX LAP, LEFT SALPINECTOMY - LEFT HYDROSALPINGX History of gynecological procedure (07/06/11) colposcopy / 02/08/2010 Family History Family History Father Diabetes mellitus Heart disease History of brain shunt Hydrocalycosis Status post double vessel coronary artery bypass Mother Atrial fibrillation Cardiac defibrillator in place Other Family history of malignant neoplasm of brain Family history of malignant neoplasm of kidney Family history of type 2 diabetes mellitus Hypertension Social History Social History Smoking packs per day: 0.05 Smoking cigarettes per day: 1.0 Years smoked: 15 Smoking pack-years: 0.75 Smoking status: Former smoker Tobacco type: cigarettes Second hand tobacco smoke exposure: Yes Alcohol intake: current Drinks per week: 2 Alcohol use details: Socially Substance use: never Substance use type: does not use Do You Feel Safe in your Home?: Yes Lack of Transportation: No Lack of Food: Never True Current Housing: I Have Housing Concerned About Future Housing: No Difficulty Paying Gas/Electric Bills: No Difficulty Paying for Meds: No Currently Unemployed: No Education: Bachelor's Degree Difficulty w/ Childcare or Family Care: No Living arrangements: with family Additional living arrangements comments: Occupation/Education: occupation 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 Gender identity (if verbalized by the patient): Female Sexual Orientation (if Verbalized by the Patient): Straight or Heterosexual Anes - Eval Final PreProcedure Day of Procedure 05/12/24 12:47 Patient weight: obese Heart: regular rate and rhythm Lungs: clear to auscultation Airway: Mallampati scale class II Neurological: alert and oriented Last oral intake: >/= 8 hours ASA classification: II Emergent: no Anesthetic plan: proceed Anesthesia type and monitoring: general GIVS and standard monitoring Results Review: All pre-operative results and documents have been reviewed as part of the pre- operative evaluation. Informed Consent: The patient's anesthetic plan and its attendant risks and benefits were discussed with the patient/family/POA. Questions were solicited and answers provided to the satisfaction of the patient/family/POA.
--- NOTE | 2024-05-12 13:10 | PM.HPGS ---
History of Present Illness History of Present Illness Consent: Risks, benefits, and alternatives have been discussed and questions answered. Patient agrees to proceed with procedure. Chief complaint: Epigastric pain,dysphagia Narrative: Kylah Vieyra is a 48 year old female here for first egd, h/o nausea and intermittent dysphagia, she is not taking ppi Review of Systems Review of Systems: All systems reviewed & are unremarkable except as noted in HPI and below PMFSH Past Medical History Medical History Obesity (BMI 30-39.9) Left breast mass Screening mammogram, encounter for Broken ankle BMI 39.0-39.9,adult Tobacco abuse Anxiety Benign hypertension Surgical History Surgical History Hx laparoscopic cholecystectomy 09/28/22 History of gynecological procedure (01/05/04) LAP, CHROMOPERTUBATION, HSCOPE History of gynecological procedure (03/09/04) DX LAP, LEFT SALPINECTOMY - LEFT HYDROSALPINGX History of gynecological procedure (07/06/11) colposcopy / 02/08/2010 Family History Family History Father Diabetes mellitus Heart disease History of brain shunt Hydrocalycosis Status post double vessel coronary artery bypass Mother Atrial fibrillation Cardiac defibrillator in place Other Family history of malignant neoplasm of brain Family history of malignant neoplasm of kidney Family history of type 2 diabetes mellitus Hypertension Social History Social History Smoking packs per day: 0.05 Smoking cigarettes per day: 1.0 Years smoked: 15 Smoking pack-years: 0.75 Smoking status: Former smoker Tobacco type: cigarettes Second hand tobacco smoke exposure: Yes Alcohol intake: current Drinks per week: 2 Alcohol use details: Socially Substance use: never Substance use type: does not use Do You Feel Safe in your Home?: Yes Lack of Transportation: No Lack of Food: Never True Current Housing: I Have Housing Concerned About Future Housing: No Difficulty Paying Gas/Electric Bills: No Difficulty Paying for Meds: No Currently Unemployed: No Education: Bachelor's Degree Difficulty w/ Childcare or Family Care: No Living arrangements: with family Additional living arrangements comments: Occupation/Education: occupation 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 Gender identity (if verbalized by the patient): Female Sexual Orientation (if Verbalized by the Patient): Straight or Heterosexual Meds Home Medications and Allergies Home Medications ?Medication ?Instructions ?Recorded ?Confirmed ?Type tirzepatide (weight loss) 5 mg/0.5 5 mg (0.5 mL) subcut WEEKLY #2 mL 10/23/23 05/12/24 Rx mL subcutaneous pen injector (Zepbound) ondansetron 4 mg disintegrating 4 mg PO Q6H PRN nausea and 01/20/24 05/01/24 Rx tablet vomiting #10 tabs lisinopril 20 See Rx Instructions .Route 03/12/24 05/12/24 Rx mg-hydrochlorothiazide 25 mg tablet .COMPLEX #90 tabs clonazepam 0.5 mg tablet 0.5 mg PO DAILY PRN Anxiety #30 05/08/24 05/12/24 Rx tabs Allergies Allergy/AdvReac Type Severity Reaction Status Date / Time meloxicam AdvReac Intermediate Hypertensio Verified 05/12/24 12:33 n Sulfa (Sulfonamide AdvReac Intermediate Rash Verified 05/12/24 12:33 Antibiotics) Vital Signs Vital Signs - 24 hr 05/12/24 12:35 Temperature 97.1 F L Pulse Rate 81 Respiratory Rate 20 Blood Pressure 137/85 Pulse Oximetry 99 Oxygen Delivery Room Air Exam Const: General: comfortable and no acute distress HENMT: Face/Nose/Sinus: Normal nares present Eyes: General: appearance normal, both eyes and all related structures Neck: Neck: no JVD Resp: Auscultation: clear to auscultation bilaterally Cardio: Rate: regular rate Rhythm: regular rhythm GI: Inspection: non-distended GI Palp: Yes Soft to palpation Skin: General skin exam: normal color Neuro: General: gait normal Speech: normal speech Extrem: General: normal to inspection Psych: Mental Status: mental status grossly normal Assessment and Plan Assessment and plan (1) Nausea & vomiting: Code(s): R11.2 - Nausea with vomiting, unspecified Status: Acute Assessment and Plan: egd with bx (2) Dysphagia: Qualifiers: Dysphagia type: esophageal phase Qualified Code(s): R13.19 - Other dysphagia Code(s): R13.10 - Dysphagia, unspecified Status: Acute (3) Epigastric pain: Code(s): R10.13 - Epigastric pain Status: Acute
[2024-05-12 13:17] VITALS: BP 106/64; PULSE 81; RESP 21; O2SAT 94
[2024-05-12 13:27] VITALS: BP 107/61; PULSE 61; RESP 18; O2SAT 100
[2024-05-12 13:37] VITALS: BP 113/73; PULSE 60; RESP 17; O2SAT 99
== END 2024-05-12 13:49 | disposition home or self-care (01) ==
PROVIDERS: PCP Family Medicine; Referring Provider Nurse Practitioner Family; Visit Provider Internal Medicine Gastroenterology
PROC: 0DJ08ZZ Inspection of Upper Intestinal Tract, Via Natural or Artificial Opening Endoscopic (ICD-10-PCS; CPT 43239; principal; 2024-05-12 14:00)
DX: R13.10 Dysphagia, unspecified (principal); R11.0 Nausea; R10.13 Epigastric pain; Z87.891 Personal history of nicotine dependence; E66.9 Obesity, unspecified; Z68.37 Body mass index [BMI] 37.0-37.9, adult
CPT/HCPCS: 43239; 88305; J2704; J7120

== ENCOUNTER 2024-05-22 11:19 | Outpatient (CLI) | payer BC, SELFPAY ==
--- NOTE | ~2024-05-22 | CT_ITS ---
EXAMINATION:CT diagnostic chest w con DATE: 05/22/2024 11:45 INDICATION: Solitary pulmonary nodule. TECHNIQUE: Computed tomography (CT) of the chest was performed with 75 mL Omnipaque 350 intravenous c ontrast. Automated exposure control and iterative reconstruction technique were employed. The dose-le ngth product (DLP) was 314.56 mGy-cm. COMPARISON: CT abdomen and pelvis 02/11/2024 FINDINGS: The lungs demonstrate mild dependent atelectasis. No pleural effusion. The heart size is no rmal. No pericardial effusion. There are changes of cholecystectomy. There is kyphosis of thoracic sp ine. There is mild chronic anterior wedging of many vertebral bodies. There is moderate thoracic spon dylosis. IMPRESSION: 1. No pulmonary nodule identified. Reviewed, dictated and finalized at location A.
[2024-05-22 11:37] LABS: Estimated Glomerular Filt Rate > 60
== END 2024-05-22 11:20 | disposition home or self-care (01) ==
LOC: MICIMG 11:20
PROVIDERS: PCP Family Medicine; Visit Provider Nurse Practitioner Family
DX: R91.1 Solitary pulmonary nodule (principal)
CPT/HCPCS: 71260; Q9967

== ENCOUNTER 2025-02-20 13:45 | Outpatient (CLI) | payer BC, SELFPAY ==
--- NOTE | ~2025-02-20 | MR_ITS ---
EXAMINATION: MR brain IAC wo/w con DATE: 02/20/2025 15:09 INDICATION: Other amnesia. Headache. TECHNIQUE: Magnetic resonance imaging (MRI) of the brain, brainstem, and internal auditory canals was performed without and with 20 mL MultiHance intravenous contrast. COMPARISON: Brain MRI 09/19/15 FINDINGS: There is no intracranial hemorrhage, acute infarction, or abnormal intracranial mass lesion. The ventricles are normal in size. The paranasal sinuses are clear. The orbits are normal. The mastoid air cells are normal. The internal auditory canals and inner ears and tympanic cavities are normal. IMPRESSION: 1. Normal brain. Reviewed, dictated and finalized at location E. [employer] IMPRESSION: 1. Normal brain.
== END 2025-02-20 13:46 | disposition home or self-care (01) ==
PROVIDERS: PCP Family Medicine; Visit Provider Nurse Practitioner Family
DX: R41.3 Other amnesia (principal); R41.0 Disorientation, unspecified; R51.9 Headache, unspecified
CPT/HCPCS: 70553; A9577